=== PATIENT | male | born 1965 | race African-American/Black ===

== ENCOUNTER 2016-06-29 09:44 | Inpatient (IN) | payer OTHER ==
[2016-06-29 12:31] VITALS: BMI 29.4
--- NOTE | 2016-06-29 16:13 | HP ---
CIWA Score - CIWA Score Nausea/Vomitin-No Nausea/No Vomiting Muscle Tremors: 4-Moderate,w/Arms Extend Anxiety: 3 Agitation: 4-Moderately Restless Paroxysmal Sweats: 3 Orientation: 0-Oriented Tacttile Disturbances: 0-None Auditory Disturbances: 0-None Visual Disturbances: 0-None Headache: 0-None Present CIWA-Ar Total Score: 14 Admission ROS BHS - HPI Chief Complaint: I am here to detox. Allergies/Adverse Reactions: Allergies Allergy/AdvReac Type Severity Reaction Status Date / Time No Known Allergies Allergy Verified 06/29/16 13:48 History of Present Illness: pt is a 50yr old male with a history of alcohol dependence seeking detox for treatment. Exam Limitations: No Limitations - Ebola screening Have you traveled outside of the country in the last 21 days: No Have you had contact with anyone from an Ebola affected area: No Have you been sick,other than usual withdrawal symptoms: No Do you have a fever: No - Review of Systems Constitutional: Diaphoresis, Night Sweats, Changes in sleep EENT: reports: No Symptoms Reported, Other (left eyebrow stitches with black/ blue brusing around eye. some abrasion to face. all d/t to his upset and hit him yesterday.) Respiratory: reports: Other (sore throat no redness) Cardiac: reports: No Symptoms Reported GI: reports: No Symptoms Reported : reports: No Symptoms Reported Musculoskeletal: reports: Back Pain Integumentary: reports: Bruising (periorbital to left eye), Sweating Neuro: reports: Headache, Tingling, Tremors Endocrine: reports: Excessive Sweating, Flushing, Intolerance to Cold, Intolerance to Heat Hematology: reports: No Symptoms Reported Psychiatric: reports: Judgement Intact, Mood/Affect Appropiate, Orientated x3, Agitated, Anxious Other Systems: Reviewed and Negative Patient History - Patient Medical History Hx Anemia: No Hx Asthma: No Hx Chronic Obstructive Pulmonary Disease (COPD): No Hx Cancer: No Hx Cardiac Disorders: No Hx Congestive Heart Failure: No Hx Hypertension: No Hx Hypercholesterolemia: No Hx Pacemaker: No HX Cerebrovascular Accident: No Hx Seizures: No Hx Dementia: No Hx Diabetes: No Hx Gastrointestinal Disorders: No Hx Liver Disease: No Hx Genitourinary Disorders: No Hx Sexually Transmitted Disorders: No Hx Renal Disease (ESRD): No Hx Thyroid Disease: No Hx Human Immunodeficiency Virus (HIV): No (negative) Hx Hepatitis C: No (negative) Hx Depression: No Hx Suicide Attempt: No (denies) Hx Bipolar Disorder: No Hx Schizophrenia: No - Patient Surgical History Past Surgical History: No - PPD History Previous Implant?: Yes Documented Results: Negative w/o proof Implanted On Prior R Admission?: No PPD to be Administered?: Yes - Reproductive History Patient is a Female of Child Bearing Age (11 -55 yrs old): No - Smoking Cessation Smoking history: Current every day smoker Have you smoked in the past 12 months: Yes Aproximately how many cigarettes per day: 2 Hx Chewing Tobacco Use: No Initiated information on smoking cessation: Yes 'Breaking Loose' booklet given: 06/29/16 - Substance & Tx. History Hx Alcohol Use: Yes Substance Use Type: Alcohol Hx Substance Use Treatment: No - Substances Abused Alcohol Route: Oral Frequency: Daily Amount used: rum(1/2 pinT)/laquita cans(2) Age of first use: 19 Date of Last Use: 06/28/16 Cocaine Route: Inhalation Frequency: Daily Amount used: $20 Age of first use: 47 Marijuana/Hashish Route: Smoking Frequency: Daily Amount used: $20 Age of first use: 19 Date of Last Use: 06/28/16 Family Disease History - Family Disease History Family History: Denies Admission Physical Exam S - Vital Signs Vital Signs: Vital Signs - 24 hr 06/29/16 12:25 Temperature 97.6 F Pulse Rate 84 Respiratory 20 Rate Blood Pressure 118/86 - Physical General Appearance: Yes: Appropriately Dressed, Moderate Distress, Irritable, Sweating, Anxious HEENTM: Yes: Hearing grossly Normal, Other (sore throat. black/blue left eye periorbital area) Respiratory: Yes: Lungs Clear, Normal Breath Sounds, No Respiratory Distress Neck: Yes: No masses,lesions,Nodules Breast: Yes: Within Normal Limits Cardiology: Yes: Regular Rhythm, Regular Rate, S1, S2 Abdominal: Yes: Normal Bowel Sounds, Non Tender, Soft Genitourinary: Yes: Within Normal Limits Back: Yes: Normal Inspection Musculoskeletal: Yes: full range of Motion, Back pain Extremities: Yes: Normal Capillary Refill Neurological: Yes: Fully Oriented, Alert, Normal Response Integumentary: Yes: Normal Color, Other (abrasion to face) Lymphatic: Yes: Within Normal Limits - Diagnostic (1) Alcohol dependence with uncomplicated withdrawal Current Visit: Yes Status: Chronic (2) Nicotine dependence Current Visit: Yes Status: Chronic Qualifiers: Nicotine product type: cigarettes Substance use status: uncomplicated Qualified Code(s): F17.210 - Nicotine dependence, cigarettes, uncomplicated (3) Abrasion, face without infection Current Visit: Yes Status: Acute (4) Black eye Current Visit: Yes Status: Acute Qualifiers: Encounter type: initial encounter Laterality: left Qualified Code(s): S00.12XA - Contusion of left eyelid and periocular area, initial encounter Cleared for Admission S - Detox or Rehab [facility] Level of Care: Medically Managed Detox Regimen/Protocol: Librium S Breath Alcohol Content Breath Alcohol Content: 0 Urine Drug Screen - Results Drug Screen Negative: No Urine Drug Screen Results: VIRIDIANA-Cocaine
[2016-06-29] MEDS ORDERED: guaiFENesin/D-METHORPHAN HB 10 ML UNIT-DOSE CUPS PO PRN (16:20)
[2016-06-29] MEDS ORDERED: MAGNESIUM CITRATE 300 ML BOTTLE PO PRN (16:20)
[2016-06-29] MEDS ORDERED: IBUPROFEN 400 MG TABLET (FP) PO PRN (16:20)
[2016-06-29] MEDS ORDERED: MAGNESIUM HYDROX 2400MG/30ML ORAL SUSPENSION 30 ML CUP PO PRN (16:20)
[2016-06-29] MEDS ORDERED: MAG HYDROX/AL HYDROX/SIMETH 30 ML UNIT-DOSE CUP PO PRN (16:20)
[2016-06-29] MEDS ORDERED: P-EPHED 60MG/TRIPROLIDI 2.5MG TABLET PO PRN (16:20)
[2016-06-29] MEDS ORDERED: LOPERAMIDE HCL 2 MG CAPSULE PO PRN (16:20)
[2016-06-29] MEDS ORDERED: chlordiazePOXIDE HCL 25 MG CAPSULE PO ONE (16:20)
[2016-06-29] MEDS ORDERED: chlordiazePOXIDE HCL 25 MG CAPSULE PO PRN (16:20)
[2016-06-29] MEDS ORDERED: MENTHOL/PHENOL 1 EACH UD MM PRN (16:20)
[2016-06-29] MEDS ORDERED: hydrOXYzine PAMOATE 50 MG CAPSULE (FP) PO PRN (16:20)
[2016-06-29] MEDS: chlordiazePOXIDE HCL 25 MG CAPSULE PO SCH ×2 (18:09→22:22)
[2016-06-29] MEDS: BACITRACIN 0.9 GM PACKET TP SCH (18:10)
[2016-06-29] MEDS: diphenhydrAMINE HCL 50 MG CAPSULE PO PRN (22:21)
[2016-06-29] MEDS: THIAMINE HCL 100 MG TABLET (FP) PO SCH (22:22)
[2016-06-29 23:55] LABS: URINE APPEARANCE CLEAR; URINE BILIRUBIN NEGATIVE (NEGATIVE); URINE COLOR YELLOW; URINE GLUCOSE (UA) 1+ (NEGATIVE); URINE KETONE 2+ (NEGATIVE); URINE LEUK ESTERASE NEGATIVE (NEGATIVE); URINE NITRITE NEGATIVE (NEGATIVE); URINE UROBILINOGEN NEGATIVE E.U./dl (0.2-1.0)
[2016-06-30 00:12] LABS: URINE BLOOD 2+ (NEGATIVE); URINE PROTEIN 2+ (NEGATIVE)
[2016-06-30 00:30] LABS: URINE MUCUS FEW; URINE WBC 1 /hpf (3-5)
[2016-06-30] MEDS: chlordiazePOXIDE HCL 25 MG CAPSULE PO SCH ×4 (05:37→22:14)
[2016-06-30 08:36] LABS: HIV 1 & 2 AB NEGATIVE; HIV 1 AGp24 NEGATIVE
[2016-06-30] MEDS: PRENATAL VITAMINS W/ FOLIC ACID TABLET (FP) PO SCH (10:02)
[2016-06-30] MEDS: BACITRACIN 0.9 GM PACKET TP SCH (10:02)
[2016-06-30 10:06] LABS: MCH 28.6 pg (25.7-33.7); MCHC 33.3 g/dl (32.0-35.9); MEAN CELL VOLUME 85.9 fl (80-96); MEAN PLT VOLUME 9.1 fl (7.5-11.1); PLATELET COUNT 315 K/MM3 (134-434); RDW 15.4 % (11.9-15.9); WHITE BLOOD COUNT 13.8 K/mm3 (4.0-10.0)
[2016-06-30 10:26] LABS: BILIRUBIN,TOTAL 0.6 mg/dL (0.2-1.0); COCKROFT - GAULT 68.72; CREATININE 1.4 mg/dL (0.7-1.3)
--- NOTE | 2016-06-30 12:21 | EKG ---
Test Reason : Blood Pressure : / mmHG Vent. Rate : 093 BPM Atrial Rate : 093 BPM P-R Int : 132 ms QRS Dur : 094 ms QT Int : 386 ms P-R-T Axes : 052 079 048 degrees QTc Int : 479 ms NORMAL SINUS RHYTHM MODERATE VOLTAGE CRITERIA FOR LVH, MAY BE NORMAL VARIANT BORDERLINE ECG NO PREVIOUS ECGS AVAILABLE Confirmed by MD LEE, AMANDA ([id number]) on 06/30/2016 12:21:26 PM Referred By: Daryl Ronquillo Confirmed By:AMANDA HOWARD MD
[2016-06-30] MEDS: ACETAMINOPHEN 325 MG TABLET (FP) PO PRN (17:31)
--- NOTE | 2016-06-30 18:30 | PN ---
S CIWA - CIWA Score Nausea/Vomitin-Mild Nausea/No Vomiting Muscle Tremors: 4-Moderate,w/Arms Extend Anxiety: 3 Agitation: 3 Paroxysmal Sweats: 3 Orientation: 0-Oriented Tacttile Disturbances: 2-Mild Itch/Numbness/Burn Auditory Disturbances: 0-None Visual Disturbances: 2-Mild Sensitivity Headache: 0-None Present CIWA-Ar Total Score: 18 BHS Progress Note (SOAP) Subjective: Tremors, Sweating, Anxious. Objective: PT. A & O X 3. 06/30/16 18:31 Vital Signs Temperature 97.1 F L 06/30/16 13:09 Pulse Rate 78 06/30/16 13:09 Respiratory Rate 18 06/30/16 13:09 Blood Pressure 127/72 06/30/16 13:09 O2 Sat by Pulse Oximetry (%) Laboratory Tests 06/29/16 06/29/16 06/30/16 14:00 23:40 06:00 WBC 13.8 H RBC 5.15 Hgb 14.7 Hct 44.2 MCV 85.9 MCHC 33.3 RDW 15.4 Plt Count 315 MPV 9.1 Sodium Potassium Chloride Carbon Dioxide Anion Gap BUN Creatinine Creat Clearance w eGFR Random Glucose Calcium Total Bilirubin AST ALT Alkaline Phosphatase Total Protein Albumin Urine Color Yellow Urine Appearance Clear Urine pH 5.0 Ur Specific [place] 1.025 Urine Protein 2+ H Urine Glucose (UA) 1+ H Urine Ketones 2+ H Urine Blood 2+ H Urine Nitrite Negative Urine Bilirubin Negative Urine Urobilinogen Negative Ur Leukocyte Esterase Negative Urine RBC None Urine WBC 1 Ur Epithelial Cells Rare Urine Mucus Few RPR Titer HIV 1&2 Antibody Screen Negative HIV P24 Antigen Negative 06/30/16 06/30/16 06:00 06:00 WBC RBC Hgb Hct MCV MCHC RDW Plt Count MPV Sodium 140 Potassium 4.1 Chloride 105 Carbon Dioxide 26 Anion Gap 9 BUN 19 H Creatinine 1.4 H Creat Clearance w eGFR 54.09 Random Glucose 110 H Calcium 9.0 Total Bilirubin 0.6 AST 140 H ALT 61 Alkaline Phosphatase 144 H Total Protein 7.0 Albumin 4.0 Urine Color Urine Appearance Urine pH Ur Specific [place] Urine Protein Urine Glucose (UA) Urine Ketones Urine Blood Urine Nitrite Urine Bilirubin Urine Urobilinogen Ur Leukocyte Esterase Urine RBC Urine WBC Ur Epithelial Cells Urine Mucus RPR Titer Nonreactive HIV 1&2 Antibody Screen HIV P24 Antigen LABS NOTED. Assessment: 06/30/16 18:32 WITHDRAWAL SYMPTOMS. Plan: CONTINUE DETOX. REPEAT UA FOR ABNORMAL ADMISSION UA VALUES.
[2016-06-30] MEDS: diphenhydrAMINE HCL 50 MG CAPSULE PO PRN (22:14)
[2016-06-30] MEDS: THIAMINE HCL 100 MG TABLET (FP) PO SCH (22:14)
[2016-07-01] MEDS: chlordiazePOXIDE HCL 25 MG CAPSULE PO SCH ×2 (05:30→10:19)
[2016-07-01] MEDS: BACITRACIN 0.9 GM PACKET TP SCH (10:19)
[2016-07-01] MEDS: PRENATAL VITAMINS W/ FOLIC ACID TABLET (FP) PO SCH (10:19)
--- NOTE | 2016-07-01 16:38 | PN ---
S CIWA - CIWA Score Nausea/Vomitin Muscle Tremors: 3 Anxiety: 3 Agitation: 3 Paroxysmal Sweats: No Perspiration Orientation: 0-Oriented Tacttile Disturbances: 1-Very Mild Itch/Numbness Auditory Disturbances: 0-None Visual Disturbances: 0-None Headache: 2-Mild CIWA-Ar Total Score: 14 S Progress Note (SOAP) Subjective: Anxious, sweating, interrupted sleep; c/o polyuria and denies dysuria Objective: 07/01/16 16:34 Last Vital Signs Temp Pulse Resp BP Pulse Ox 97.1 F L 65 18 108/70 07/01/16 13:43 07/01/16 13:43 07/01/16 13:43 07/01/16 13:43 Laboratory Tests 06/29/16 06/29/16 06/30/16 14:00 23:40 06:00 WBC 13.8 H RBC 5.15 Hgb 14.7 Hct 44.2 MCV 85.9 MCHC 33.3 RDW 15.4 Plt Count 315 MPV 9.1 Sodium Potassium Chloride Carbon Dioxide Anion Gap BUN Creatinine Creat Clearance w eGFR Random Glucose Calcium Total Bilirubin AST ALT Alkaline Phosphatase Total Protein Albumin Urine Color Yellow Urine Appearance Clear Urine pH 5.0 Ur Specific [place] 1.025 Urine Protein 2+ H Urine Glucose (UA) 1+ H Urine Ketones 2+ H Urine Blood 2+ H Urine Nitrite Negative Urine Bilirubin Negative Urine Urobilinogen Negative Ur Leukocyte Esterase Negative Urine RBC None Urine WBC 1 Ur Epithelial Cells Rare Urine Mucus Few RPR Titer HIV 1&2 Antibody Screen Negative HIV P24 Antigen Negative 06/30/16 06/30/16 06:00 06:00 WBC RBC Hgb Hct MCV MCHC RDW Plt Count MPV Sodium 140 Potassium 4.1 Chloride 105 Carbon Dioxide 26 Anion Gap 9 BUN 19 H Creatinine 1.4 H Creat Clearance w eGFR 54.09 Random Glucose 110 H Calcium 9.0 Total Bilirubin 0.6 AST 140 H ALT 61 Alkaline Phosphatase 144 H Total Protein 7.0 Albumin 4.0 Urine Color Urine Appearance Urine pH Ur Specific [place] Urine Protein Urine Glucose (UA) Urine Ketones Urine Blood Urine Nitrite Urine Bilirubin Urine Urobilinogen Ur Leukocyte Esterase Urine RBC Urine WBC Ur Epithelial Cells Urine Mucus RPR Titer Nonreactive HIV 1&2 Antibody Screen HIV P24 Antigen Labs noted: UA abnormal, BUN 19, creatinine 1.4 Assessment: 07/01/16 16:35 Withdrawal symptoms Noted with abnormal UA and pre renal azotemia Plan: Continue detox Abnormal UA: encouraged to drink more water, repeat UA, send urine C&S Pre renal azotemia: encouraged to drink more water, repeat BMP in AM
[2016-07-01] MEDS: chlordiazePOXIDE 5 MG CAPSULE PO SCH ×2 (17:15→22:12)
[2016-07-01 18:11] LABS: URINE APPEARANCE CLEAR; URINE BILIRUBIN NEGATIVE (NEGATIVE); URINE BLOOD NEGATIVE (NEGATIVE); URINE COLOR COLORLESS; URINE GLUCOSE (UA) NEGATIVE (NEGATIVE); URINE KETONE NEGATIVE (NEGATIVE); URINE LEUK ESTERASE NEGATIVE (NEGATIVE); URINE NITRITE NEGATIVE (NEGATIVE); URINE PROTEIN NEGATIVE (NEGATIVE); URINE UROBILINOGEN NEGATIVE E.U./dl (0.2-1.0)
[2016-07-01] MEDS: diphenhydrAMINE HCL 50 MG CAPSULE PO PRN (22:12)
[2016-07-01] MEDS: THIAMINE HCL 100 MG TABLET (FP) PO SCH (22:13)
[2016-07-01] MEDS: ACETAMINOPHEN 325 MG TABLET (FP) PO PRN (22:14)
[2016-07-02] MEDS: chlordiazePOXIDE 5 MG CAPSULE PO SCH ×2 (05:46→10:17)
[2016-07-02] MEDS: ACETAMINOPHEN 325 MG TABLET (FP) PO PRN ×2 (05:49→22:17)
[2016-07-02] MEDS: BACITRACIN 0.9 GM PACKET TP SCH (10:17)
[2016-07-02] MEDS: PRENATAL VITAMINS W/ FOLIC ACID TABLET (FP) PO SCH (10:17)
--- NOTE | 2016-07-02 12:50 | PN ---
BHS Progress Note (SOAP) Subjective: Tremors only Detox symptom reported by patient today. Objective: PT. A & O X 3. 07/02/16 12:46 Vital Signs Temperature 97.6 F 07/02/16 09:53 Pulse Rate 74 07/02/16 09:53 Respiratory Rate 18 07/02/16 09:53 Blood Pressure 109/73 07/02/16 09:53 O2 Sat by Pulse Oximetry (%) Laboratory Tests 06/29/16 06/29/16 06/30/16 14:00 23:40 06:00 WBC 13.8 H RBC 5.15 Hgb 14.7 Hct 44.2 MCV 85.9 MCHC 33.3 RDW 15.4 Plt Count 315 MPV 9.1 Sodium Potassium Chloride Carbon Dioxide Anion Gap BUN Creatinine Creat Clearance w eGFR Random Glucose Calcium Total Bilirubin AST ALT Alkaline Phosphatase Total Protein Albumin Urine Color Yellow Urine Appearance Clear Urine pH 5.0 Ur Specific [place] 1.025 Urine Protein 2+ H Urine Glucose (UA) 1+ H Urine Ketones 2+ H Urine Blood 2+ H Urine Nitrite Negative Urine Bilirubin Negative Urine Urobilinogen Negative Ur Leukocyte Esterase Negative Urine RBC None Urine WBC 1 Ur Epithelial Cells Rare Urine Mucus Few RPR Titer HIV 1&2 Antibody Screen Negative HIV P24 Antigen Negative 06/30/16 06/30/16 07/01/16 06:00 06:00 10:14 WBC RBC Hgb Hct MCV MCHC RDW Plt Count MPV Sodium 140 Potassium 4.1 Chloride 105 Carbon Dioxide 26 Anion Gap 9 BUN 19 H Creatinine 1.4 H Creat Clearance w eGFR 54.09 Random Glucose 110 H Calcium 9.0 Total Bilirubin 0.6 AST 140 H ALT 61 Alkaline Phosphatase 144 H Total Protein 7.0 Albumin 4.0 Urine Color Colorless Urine Appearance Clear Urine pH 7.0 D Ur Specific [place] <= 1.005 Urine Protein Negative Urine Glucose (UA) Negative Urine Ketones Negative Urine Blood Negative Urine Nitrite Negative Urine Bilirubin Negative Urine Urobilinogen Negative Ur Leukocyte Esterase Negative Urine RBC Urine WBC Ur Epithelial Cells Urine Mucus RPR Titer Nonreactive HIV 1&2 Antibody Screen HIV P24 Antigen LABS NOTED. Assessment: 07/02/16 12:46 WITHDRAWAL SYMPTOMS. Plan: CONTINUE DETOX. ADVISED PATIENT TO FOLLOW-UP WITH HYDROLOGICAL TECHNICAL OFFICER AFTER DISCHARGE FROM DETOX FOR GENERAL MEDICAL ASSESSMENT AND FOR ABNORMAL RENAL (CREATININE, BUN, GFR) AND ELEVATED LIVER ENZYME LEVELS ON ADMISSION.
[2016-07-02 14:28] LABS: CALCIUM 9.1 mg/dL (8.5-10.1)
[2016-07-02 14:31] LABS: CREATININE 1.3 mg/dL (0.7-1.3)
--- NOTE | 2016-07-02 16:32 | PN ---
S Progress Note Note: Random Gluocse Drawn as part of BMP on 07/02/2016: 49. STAT BGM X 1 done on unit : 114. Patient denies any unusual smyptoms (fatigue, confusion, tremors, sweating, etc) at this time. BGM ACBK to be drawn tomorrow AM. Leny Garduno [employer]
[2016-07-02] MEDS: chlordiazePOXIDE HCL 10 MG CAPSULE PO SCH ×2 (17:13→22:16)
[2016-07-02] MEDS: THIAMINE HCL 100 MG TABLET (FP) PO SCH (22:16)
[2016-07-02] MEDS: diphenhydrAMINE HCL 50 MG CAPSULE PO PRN (22:18)
[2016-07-03] MEDS: chlordiazePOXIDE HCL 10 MG CAPSULE PO SCH ×2 (05:49→10:43)
[2016-07-03] MEDS: ACETAMINOPHEN 325 MG TABLET (FP) PO PRN (05:50)
[2016-07-03 09:59] VITALS: BP 120/81; PULSE 81; TEMP 95.7
[2016-07-03] MEDS: BACITRACIN 0.9 GM PACKET TP SCH (10:43)
[2016-07-03] MEDS: PRENATAL VITAMINS W/ FOLIC ACID TABLET (FP) PO SCH (10:43)
--- NOTE | 2016-07-03 12:00 | DS ---
[facility] Detox Discharge Summary Admission Date: 06/29/16 Discharge Date: 07/03/16 - History Present History: Alcohol Dependence Pertinent Past History: Denies - Physical Exam Results Vital Signs: Vital Signs Temperature 95.7 F L 07/03/16 09:58 Pulse Rate 81 07/03/16 09:58 Respiratory Rate 18 07/03/16 09:58 Blood Pressure 120/81 07/03/16 09:58 O2 Sat by Pulse Oximetry (%) Pertinent Admission Physical Exam Findings: Withdrawal sx. Laboratory Last Values WBC 13.8 K/mm3 (4.0-10.0) H 06/30/16 06:00 RBC 5.15 M/mm3 (4.00-5.60) 06/30/16 06:00 Hgb 14.7 GM/dL (11.7-16.9) 06/30/16 06:00 Hct 44.2 % (35.4-49) 06/30/16 06:00 MCV 85.9 fl (80-96) 06/30/16 06:00 MCHC 33.3 g/dl (32.0-35.9) 06/30/16 06:00 RDW 15.4 % (11.9-15.9) 06/30/16 06:00 Plt Count 315 K/MM3 (134-434) 06/30/16 06:00 MPV 9.1 fl (7.5-11.1) 06/30/16 06:00 Sodium 141 mmol/L (136-145) 07/02/16 09:12 Potassium 4.3 mmol/L (3.5-5.1) 07/02/16 09:12 Chloride 104 mmol/L (98-107) 07/02/16 09:12 Carbon Dioxide 30 mmol/L (21-32) 07/02/16 09:12 Anion Gap 7 (8-16) L 07/02/16 09:12 BUN 8 mg/dL (7-18) D 07/02/16 09:12 Creatinine 1.3 mg/dL (0.7-1.3) 07/02/16 09:12 Creat Clearance w eGFR 54.09 (>60) 06/30/16 06:00 POC Glucometer 88 UNITS (()) 07/03/16 05:52 Random Glucose 49 mg/dL (74-106) L* D 07/02/16 09:12 Calcium 9.1 mg/dL (8.5-10.1) 07/02/16 09:12 Total Bilirubin 0.6 mg/dL (0.2-1.0) 06/30/16 06:00 AST 140 U/L (15-37) H 06/30/16 06:00 ALT 61 U/L (12-78) 06/30/16 06:00 Alkaline Phosphatase 144 U/L (45-117) H 06/30/16 06:00 Total Protein 7.0 g/dl (6.4-8.2) 06/30/16 06:00 Albumin 4.0 g/dl (3.4-5.0) 06/30/16 06:00 Urine Color Colorless 07/01/16 10:14 Urine Appearance Clear 07/01/16 10:14 Urine pH 7.0 (5.0-8.0) D 07/01/16 10:14 Ur Specific [place] <= 1.005 (1.005-1.025) 07/01/16 10:14 Urine Protein Negative (NEGATIVE) 07/01/16 10:14 Urine Glucose (UA) Negative (NEGATIVE) 07/01/16 10:14 Urine Ketones Negative (NEGATIVE) 07/01/16 10:14 Urine Blood Negative (NEGATIVE) 07/01/16 10:14 Urine Nitrite Negative (NEGATIVE) 07/01/16 10:14 Urine Bilirubin Negative (NEGATIVE) 07/01/16 10:14 Urine Urobilinogen Negative E.U./dl (0.2-1.0) 07/01/16 10:14 Ur Leukocyte Esterase Negative (NEGATIVE) 07/01/16 10:14 Urine RBC None /hpf (0-3) 06/29/16 23:40 Urine WBC 1 /hpf (3-5) 06/29/16 23:40 Ur Epithelial Cells Rare /hpf (FEW) 06/29/16 23:40 Urine Mucus Few 06/29/16 23:40 RPR Titer Nonreactive (NONREACTIVE) 06/30/16 06:00 HIV 1&2 Antibody Screen Negative 06/29/16 14:00 HIV P24 Antigen Negative 06/29/16 14:00 labs noted - Treatment Hospital Course: Detox Protocol Followed, Detoxed Safely, Responded well, Discharged Condition Good, Rehab Referral Accepted Patient has Accepted a Rehab Referral to: [facility] - Medication Discharge Medications: Ambulatory Orders NK [No Known Home Medication] 11/02/14 - Diagnosis (1) Abrasion, face without infection Status: Acute (2) Alcohol dependence with uncomplicated withdrawal Status: Acute (3) Nicotine dependence Status: Acute Qualifiers: Nicotine product type: cigarettes Substance use status: uncomplicated Qualified Code(s): F17.210 - Nicotine dependence, cigarettes, uncomplicated - AMA Did Patient Leave Against Medical Advice: No
== END 2016-07-03 09:00 | disposition home or self-care (01) | DRG 774 ==
LOC: YASAS 09:44 → Y3N 14:31
PROVIDERS: ADMIT Internal Medicine; ATTEND Internal Medicine
PROC: HZ2ZZZZ Detoxification Services for Substance Abuse Treatment (ICD-10-PCS; principal; 2016-06-29)
DX: F10.230 Alcohol dependence with withdrawal, uncomplicated (principal); F14.20 Cocaine dependence, uncomplicated; F17.210 Nicotine dependence, cigarettes, uncomplicated; R82.90 Unspecified abnormal findings in urine; S00.81XD Abrasion of other part of head, subsequent encounter; S00.12XD Contusion of left eyelid and periocular area, subsequent encounter; Y00.XXXD Assault by blunt object, subsequent encounter; Z59.0 Homelessness
CPT/HCPCS: 36415; 80048; 80053; 81003; 81015; 85027; 86593; 87086; 87389; 93005; 93010